=== PATIENT | female | born 1930 | race Caucasian/White ===

== ENCOUNTER 2022-01-09 17:18 | Inpatient (IN) | payer MEDICARE, BC ==
[2022-01-09] MEDS ORDERED: Sodium Chloride 0.9% 10 ML Syringe FLUSH PRN (17:33)
[2022-01-09] MEDS ORDERED: Diltiazem 50 MG/10 ML SDV IVPUSH ONE (17:37)
[2022-01-09] MEDS: Diltiazem 100 MG in Sodium Chloride 0.9% 100 ML IV SCH (17:51)
[2022-01-09] MEDS ORDERED: Apixaban 5 MG Tab PO ONE (18:28)
[2022-01-09] MEDS ORDERED: Acetaminophen 325 MG Tab PO PRN (19:09)
[2022-01-09] MEDS ORDERED: Magnesium Hydroxide 400 MG/5 ML Susp 30 ML Cup PO PRN (19:09)
[2022-01-09] MEDS ORDERED: Pantoprazole 40 MG Vial IVPUSH ONE (19:09)
[2022-01-09] MEDS ORDERED: Zolpidem 5 MG Tab PO PRN (19:09)
[2022-01-09] MEDS ORDERED: Calcium Gluconate 10% 1 GM/10 ML SDV IV SCH (19:30)
[2022-01-09] MEDS ORDERED: atorvaSTATin 20 MG Tab PO SCH (21:45)
[2022-01-09] MEDS: Potassium Chloride 20 MEQ Tab.ER PO SCH (21:56)
[2022-01-10] MEDS ORDERED: Pantoprazole 40 MG Vial IVPUSH ONE (00:07)
[2022-01-10] MEDS: Diltiazem 100 MG in Sodium Chloride 0.9% 100 ML IV SCH (02:23)
[2022-01-10] MEDS: Calcium Carbonate/Vitamin D3 600 MG-200 Units Tab PO SCH (08:42)
[2022-01-10] MEDS: Apixaban 5 MG Tab PO SCH ×2 (08:42→20:22)
[2022-01-10] MEDS: Diltiazem IR 60 MG Tab PO SCH ×2 (08:42→17:07)
[2022-01-10] MEDS: Potassium Chloride 20 MEQ Tab.ER PO SCH (08:43)
[2022-01-10] MEDS: Metoprolol Tartrate 25 MG Tab PO SCH ×2 (08:44→20:22)
[2022-01-10] MEDS ORDERED: Furosemide 40 MG/4 ML VIAL IVPUSH ONE (14:30)
[2022-01-11] MEDS: Diltiazem IR 60 MG Tab PO SCH ×2 (00:23→10:38)
[2022-01-11] MEDS ORDERED: Diltiazem 180 MG Cap.CD PO SCH (09:00)
[2022-01-11] MEDS ORDERED: Losartan 25 MG Tab PO SCH (09:00)
[2022-01-11] MEDS ORDERED: Calcium Gluconate 10% 1 GM/10 ML SDV IVPUSH ONE (09:30)
[2022-01-11] MEDS: Calcium Carbonate/Vitamin D3 600 MG-200 Units Tab PO SCH (09:41)
[2022-01-11] MEDS: Apixaban 5 MG Tab PO SCH (09:42)
[2022-01-11] MEDS: Metoprolol Tartrate 25 MG Tab PO SCH (09:42)
== END 2022-01-11 14:00 | disposition home or self-care (01) | DRG 310 ==
LOC: JD.ED 17:18 → JD.ICU 19:09
PROVIDERS: ADMIT Pediatrics; ATTEND Pediatrics
DX: I48.91 Unspecified atrial fibrillation (principal); R60.9 Edema, unspecified; R73.9 Hyperglycemia, unspecified; D69.6 Thrombocytopenia, unspecified; R60.0 Localized edema; H54.7 Unspecified visual loss; E78.00 Pure hypercholesterolemia, unspecified; I50.9 Heart failure, unspecified; K21.9 Gastro-esophageal reflux disease without esophagitis; Z87.440 Personal history of urinary (tract) infections; Z86.19 Personal history of other infectious and parasitic diseases; Z98.49 Cataract extraction status, unspecified eye; Z88.2 Allergy status to sulfonamides; Z90.49 Acquired absence of other specified parts of digestive tract; Z90.710 Acquired absence of both cervix and uterus; Z79.01 Long term (current) use of anticoagulants; Z79.899 Other long term (current) drug therapy
CPT/HCPCS: 36415; 80053; 83036; 84443; 84484; 85025; 85379; 93005; 96374; 99285; A9270; J3490 ×3; 80048; 83735; 83880; 84156; 84166; 86022; 93010; 93306; 93971-26-RT; 93971-RT; 99284; C9113; J0610; J1940